=== PATIENT | male | born 1960 | race Caucasian/White ===

== ENCOUNTER 2023-01-11 11:07 | Outpatient (REF) | payer OTHER, SELFPAY | END 2023-01-11 11:08 | disposition home or self-care (01) | LOC: HO.BBR 11:07 | PROVIDERS: Visit Provider Internal Medicine | DX: D45 Polycythemia vera (principal) | CPT/HCPCS: 85018; 99195 ==

== ENCOUNTER 2023-02-13 11:54 | Outpatient (REF) | payer OTHER, SELFPAY | END 2023-02-13 11:55 | disposition home or self-care (01) | LOC: HO.BBR 11:54 | PROVIDERS: Visit Provider Internal Medicine | DX: D45 Polycythemia vera (principal) | CPT/HCPCS: 85018; 99195 ==

== ENCOUNTER 2023-03-22 12:55 | Outpatient (REF) | payer OTHER, SELFPAY | END 2023-03-22 12:56 | disposition home or self-care (01) | LOC: HO.BBR 12:55 | PROVIDERS: Visit Provider Internal Medicine | DX: D45 Polycythemia vera (principal) | CPT/HCPCS: 85014; 85018; 99195 ==

== ENCOUNTER 2023-04-25 14:59 | Outpatient (REF) | payer OTHER, SELFPAY | END 2023-04-25 15:00 | disposition home or self-care (01) | LOC: HO.BBR 14:59 | PROVIDERS: Visit Provider Internal Medicine | DX: D45 Polycythemia vera (principal) | CPT/HCPCS: 85018; 99195 ==

== ENCOUNTER 2023-06-26 15:10 | Outpatient (REF) | payer OTHER, SELFPAY | END 2023-06-26 15:11 | disposition home or self-care (01) | LOC: HO.BBR 15:10 | PROVIDERS: Visit Provider Internal Medicine | DX: D45 Polycythemia vera (principal) | CPT/HCPCS: 85018; 99195 ==

== ENCOUNTER 2023-08-28 15:06 | Outpatient (REF) | payer OTHER, SELFPAY | END 2023-08-28 15:07 | disposition home or self-care (01) | LOC: HO.BBR 15:06 | PROVIDERS: Visit Provider Internal Medicine | DX: D45 Polycythemia vera (principal) | CPT/HCPCS: 85014; 85018; 99195 ==

== ENCOUNTER 2023-10-31 15:36 | Outpatient (REF) | payer BC, SELFPAY | END 2023-10-31 15:37 | disposition home or self-care (01) | LOC: HO.BBR 15:36 | PROVIDERS: Visit Provider Internal Medicine | DX: D45 Polycythemia vera (principal) | CPT/HCPCS: 85018; 99195 ==

== ENCOUNTER 2024-01-02 15:02 | Outpatient (REF) | payer BC, SELFPAY | END 2024-01-02 15:03 | disposition home or self-care (01) | LOC: HO.BBR 15:02 | PROVIDERS: Visit Provider Internal Medicine | DX: D45 Polycythemia vera (principal) | CPT/HCPCS: 85018; 99195 ==

== ENCOUNTER 2024-03-04 15:01 | Outpatient (REF) | payer BC, SELFPAY | END 2024-03-04 15:02 | disposition home or self-care (01) | LOC: HO.BBR 15:01 | PROVIDERS: Visit Provider Internal Medicine | DX: D45 Polycythemia vera (principal) | CPT/HCPCS: 85014; 85018; 99195 ==

== ENCOUNTER 2024-05-06 14:55 | Outpatient (REF) | payer BC, SELFPAY | END 2024-05-06 14:56 | disposition home or self-care (01) | LOC: HO.BBR 14:55 | PROVIDERS: Visit Provider Internal Medicine | DX: D45 Polycythemia vera (principal) | CPT/HCPCS: 85018; 99195 ==

== ENCOUNTER 2024-07-08 15:08 | Outpatient (REF) | payer BC, SELFPAY | END 2024-07-08 15:09 | disposition home or self-care (01) | LOC: HO.BBR 15:08 | PROVIDERS: Visit Provider Internal Medicine | DX: D45 Polycythemia vera (principal) | CPT/HCPCS: 85014; 85018; 99195 ==

== ENCOUNTER 2024-09-08 15:15 | Outpatient (REF) | payer BC, SELFPAY | END 2024-09-08 15:16 | disposition home or self-care (01) | LOC: HO.BBR 15:15 | PROVIDERS: Visit Provider Internal Medicine | DX: D45 Polycythemia vera (principal) | CPT/HCPCS: 85018; 99195 ==

== ENCOUNTER 2024-10-31 15:07 | Outpatient (REF) | payer BC, SELFPAY | END 2024-10-31 15:08 | disposition home or self-care (01) | LOC: HO.BBR 15:07 | PROVIDERS: Visit Provider Internal Medicine | DX: D45 Polycythemia vera (principal) | CPT/HCPCS: 85018; 99195 ==

== ENCOUNTER 2025-01-13 15:03 | Outpatient (REF) | payer BC, SELFPAY ==
--- OUTSIDE RECORDS SUMMARY | 2025-01-13 18:53 | XMS_ITS | Continuity of Care Document ---
Author Organization [facility] Address [address] [place] [address]- Care Team Providers Care Ios Architect Name Role Phone Leon GENTILE, Michelle Cervantes Primary Care Physician Encounter [facility] Date(s): 12/09/24 - 01/08/25 [facility] [address] [place] [id number]- Attending Physician: David Jewell Admitting Physician: David Jewell Referring Physician: [id number] [id number] Encounter Type: Triage Allergies, Adverse Reactions, Alerts Substance Criticality Severity Reaction Reaction Severity Status Latex Active Immunizations Given and Recorded Vaccine Date Status Refusal Reason influenza virus vaccine, inactivated 11/16/23 Alpesh rded influenza virus vaccine, inactivated 09/06/22 Alpesh rded influenza virus vaccine, inactivated 07/17/21 Alpesh rded influenza virus vaccine, inactivated 07/27/20 Alpesh rded influenza virus vaccine, inactivated 10/21/19 Alpesh rded influenza virus vaccine, inactivated 07/17/18 Alpesh rded influenza virus vaccine, inactivated 11/03/12 Alpesh rded [id number] 12y+ bivalent booster vax 09/06/22 Recorded SARS-CoV-2 (COVID-19) mRNA BNT-162b2 vac 08/16/21 Recorded SARS-CoV-2 (COVID-19) mRNA BNT-162b2 vac 02/10/21 Recorded SARS-CoV-2 (COVID-19) mRNA BNT-162b2 vac 01/20/21 Recorded Medications apixaban 5 mg oral tablet 1 tablet = 5 mg, By Mouth, 2 times a day, # 180 tablet, 3 Refills, Maintenance, 10/24/24 12:57:00 PM EST, Tablet, [facility] #[id number], Partial fill upon patient request if the prescription is for a schedule II opioid drug., 178, cm, 07/29/24 15:49:00 EDT, Height, 95.4, kg, 03/17/24 18:30:00 EDT, Dry Weight Start Date: 10/24/24 Status: Ordered Quantity: 180.0 Unit: tablet Repeat number: 4 Crestor 20 mg oral tablet 1 tablet = 20 mg, By Mouth, Daily, # 90 tablet, 3 Refills, Maintenance, 09/19/24 1:49:00 PM EST, Tablet, [facility] #[id number], Partial fill upon patient request if the prescription is for a schedule II opioid drug., 178, cm, 07/29/24 15:49:00 EDT, Height, 95.4, kg, 03/17/24 18:30:00 EDT, DryWeight Start Date: 09/19/24 Status: Ordered Quantity: 90.0 Unit: tablet Repeat number: 4 hydrochlorothiazide 50 mg oral tablet 50 mg, 1, tablet, By Mouth, Daily, # 90 tablet, Refills 0, Tot. Refills 0, Maintenance, 12/12/24 10:22:00 AM EST, Route to Pharmacy Electronically, [facility] #[id number], Partial fill upon patient request if the prescription is for a schedule II opioid drug., 178, cm, 12/09/24 11:03:00 EST, Height, 95.4, kg, 03/17/24 18:30:00 EDT, Dry Weight Start Date: 12/12/24 Status: Ordered Quantity: 90.0 Unit: tablet Repeat number: 1 hydroxyurea 500 mg oral capsule = 5 mg/kg, By Mouth, Daily, 0 Refills, Maintenance, 07/15/24 1:05:00 PM EDT, Capsule, Partial fill upon patient request if the prescription is for a schedule II opioid drug. Start Date: 07/15/24 Status: Ordered Repeat number: 1 losartan 50 mg oral tablet 1 tablet = 50 mg, By Mouth, Daily, # 90 tablet, 1 Refills, Maintenance, 12/02/24 10:19:00 AM EST, Tablet, [facility] #[id number], Partial fill upon patient request if the prescription is for a schedule II opioid drug., 178, cm, 11/13/24 16:30:00 EST, Height, 95.4, kg, 03/17/24 18:30:00 EDT, DryWeight Start Date: 12/02/24 Status: Ordered Quantity: 90.0 Unit: tablet Repeat number: 2 Metoprolol Tartrate 100 mg oral tablet 1 tablet, By Mouth, 2 times a day, # 180 tablet, 1 Refills, Maintenance, 12/02/24 10:20:00 AM EST, [facility] #[id number], 178, cm, 11/13/24 16:30:00 EST, Height, 95.4, kg, 03/17/24 18:30:00 EDT,Dry Weight Start Date: 12/02/24 Status: Ordered Quantity: 180.0 Unit: tablet Repeat number: 2 tamsulosin 0.4 mg oral capsule 2, capsule, By Mouth, Daily, # 180 capsule, Refills 1, Tot. Refills 1, Maintenance, 12/02/24 10:19:00 AM EST, Route to Pharmacy Electronically, [facility] #[id number], 178, cm, 11/13/24 16:30:00 EST, Height, 95.4, kg, 03/17/24 18:30:00 EDT, Dry Weight Start Date: 12/02/24 Status: Ordered Quantity: 180.0 Unit: capsule Repeat number: 2 Problem List Condition Confirmation Course Effective Dates Status H ealth Status Informant Atrial fibrillation Confirmed Active Positive colorectal cancer screening using Cologuard test Confirmed Active Polycythemia Confirmed Active Former smoker Confirmed Active Hyperlipidemia Confirmed Active Hypertension Confirmed Active Leukocytosis Confirmed Active Obese class I Confirmed Active PAF (paroxysmal atrial fibrillation) Confirmed Active Screening for prostate cancer Confirmed Active Prediabetes Confirmed Active Pulmonary edema Confirmed Active Thrombocytosis Confirmed Active Umbilical hernia Confirmed Active Social History Social History Type Response Smoking Status Former smoker, quit more than 30 days ago; Other: quit approx 13 years ago; entered on: 11/03/22 Sex Sex Representation Male (finding) Patient Care team information Care Team Personnel Name: Chandler Alfaro RN Position: S RN Member Role: Primary Care Nurse Name: Michelle Quintero NP Position: S PCO Associate Professional Member Role: PCP Address: [address] [place] [address] [address] [place], [place] [address] Telecom: Name: Saurav Morales RN Position: S RN Member Role: Primary Care Nurse Care Team Related Persons Name: JESUS ECHAVARRIA Insurance Providers Guarantor name: AMADOR BRANDON [email or web address] Plan Information #: 1 Payer: [employer] Member Number: NA Policy Number: NA Group Number: NA
--- OUTSIDE RECORDS SUMMARY | 2025-01-13 18:53 | XMS_ITS | Clinical Summary ---
Author Organization [facility] Address [address] [place] [address] Care Team Providers Care Airport Utility Worker Name Role Phone Rosana Owen Primary Care Provider [phone] Allergies No known active allergies Medications Medication Sig Dispensed Refills Start Date End Date Status apixaban (ELIQUIS) 5 MG TABS tablet Take by mouth every 12 (twelve) hours. 0 Active metoprolol tartrate (LOPRESSOR) 100 MG tablet Take by mouth 2 (two) times a day. 0 Active hydroCHLOROthiazide (MICROZIDE) 12.5 MG capsule Take 1 capsule (12.5 mg total) by mouth daily. 0 Active losartan (COZAAR) tablet 50 mg Take 1 tablet (50 mg total) by mouth daily. 0 Active tamsulosin (FLOMAX) 0.4 MG CAPS Take 1 capsule (0.4 mg total) by mouth daily. 0 Active rosuvastatin (CRESTOR) tablet 20 mg Take 1 tablet (20 mg total) by mouth daily. 0 Active hydroxyurea (HYDREA) 500 MG OPENED capsule Take 1 capsule (500 mg total) by mouth daily. 30 capsule 9 05/12/2024 Active hydroxyurea (HYDREA) 500 MG capsule Take 1 capsule (500 mg total) by mouth daily 30 capsule 9 05/13/2024 Active Active Problems No known active problems Social History Tobacco Use Types Packs/Day Years Used Date Smoking Tobacco: Former Cigarettes Smokeless Tobacco: Never Tobacco Cessation:Counseling Given: Not Answered Alcohol Use Standard Drinks/Week Comments Yes 2 (1 standard drink = 0.6 oz pur e alcohol) Sex and Gender Information Value Date Recorded Sex Assigned at Not on file Gender Identity Not on file Sexual Orientation Not on file Job Start Date Occupation Industry Not on file Not on file Not on file Last Filed Vital Signs Vital Sign Reading Time Taken Comments Blood Pressure 128/82 05/12/2024 3:49 PM EDT Pulse 55 05/12/2024 3:49 PM EDT Temperature 35.9 ??C (96.7 ??F) 05/12/2024 3:49 PM ED T Respiratory Rate - - Oxygen Saturation 98% 05/12/2024 3:49 PM EDT Inhaled Oxygen Concentration - - Weight 97.5 kg (215 lb) 05/12/2024 3:49 PM EDT Height - - Body Mass Index - - Plan of Treatment Health Maintenance Due Date Last Done Comments Hepatitis C Screening 1960 Pneumococcal Vaccine (1 of 2 - PCV) 1966 Pneumococcal Vaccine (1 of 2 - PCV) 1966 Depression Screening 1972 Preventative Health Evaluation 1978 DTap / Tdap / Td (1 - Tdap) 1979 Shingrix-Zoster Vaccine (1 of 2) 1979 Colon Cancer Screening (Colonoscopy) 2005 COVID-19 Vaccine ( season) 2024 08/16/2021, 02/10/2021, 01/20/2021 Influenza Vaccine (#1) 2024 2, 07/17/2021, 07/27/2020, Additional history exists RSV Adult > 60+ Yrs or (1 - 1-dose 75+ series) 2035 Hepatitis B Vaccines Aged Out No long er eligible based on patient's age to complete this topic RSV Ped < 20 months Aged Out No longe r eligible based on patient's age to complete this topic Care Teams Airport Utility Worker Relationship Specialty Start Date End Date Rosana Owen [address] [facility] [place] [id number] PCP - General Family Medicine 05/09/23
--- OUTSIDE RECORDS SUMMARY | 2025-01-13 18:53 | XMS_ITS | Continuity of Care Document ---
Author Organization [facility] Address [address] [place] [address]- Care Team Providers Care Patient Access Coordinator Name Role Phone Leon PIANO REGULATOR INSPECTOR, Michelle Cervantes Primary Care Physician Encounter [facility] Date(s): 12/02/24 - 01/01/[address] [address]- Encounter Type: Triage Allergies, Adverse Reactions, Alerts [...] influenza virus vaccine, inactivated 11/03/12 Alpesh rded [id number] 12y+ bivalent booster vax 09/06/22 Recorded SARS-CoV-2 (COVID-19) mRNA BNT-162b2 vac 08/16/21 Recorded SARS-CoV-2 (COVID-19) mRNA BNT-162b2 vac 02/10/21 Recorded SARS-CoV-2 (COVID-19) mRNA BNT-162b2 vac 01/20/21 Recorded Medications apixaban 5 mg oral tablet 1 tablet = 5 mg, By Mouth, 2 times a day, # 180 tablet, 3 Refills, Maintenance, 10/24/24 12:57:00 PM EST, Tablet, [facility] #[id number], Partial fill upon patient request if the [...] Refills, Maintenance, 09/19/24 1:49:00 PM EST, Tablet, [facility] #[id number], Partial fill upon patient request if the [...] 10:22:00 AM EST, Route to Pharmacy Electronically, [facility] #[id number], Partial fill upon patient request if the [...] Refills, Maintenance, 12/02/24 10:19:00 AM EST, Tablet, [facility] #[id number], Partial fill upon patient request if the prescription is for a schedule II opioid drug., 178, cm, 11/13/24 16:30:00 EST, Height, 95.4, kg, 03/17/24 18:30:00 EDT, DryWeight Start Date: 12/02/24 Status: Ordered Quantity: 90.0 Unit: tablet Repeat number: 2 Metoprolol Tartrate 100 mg oral tablet 1 tablet, By Mouth, 2 times a day, # 180 tablet, 1 Refills, Maintenance, 12/02/24 10:20:00 AM EST, [facility] #[id number], 178, cm, 11/13/24 16:30:00 EST, Height, 95.4, kg, 03/17/24 18:30:00 EDT,Dry Weight Start Date: 12/02/24 Status: Ordered Quantity: 180.0 Unit: tablet Repeat number: 2 tamsulosin 0.4 mg oral capsule 2, capsule, By Mouth, Daily, # 180 capsule, Refills 1, Tot. Refills 1, Maintenance, 12/02/24 10:19:00 AM EST, Route to Pharmacy Electronically, [facility] #[id number], 178, cm, 11/13/24 16:30:00 EST, Height, 95.4, [...] Team Personnel Name: Chandler Alfaro RN Position: [facility] RN Member Role: Primary Care Nurse Name: Michlele Quintero NP Position: [facility] PCO Associate Professional Member Role: PCP Address: [address] [place] [address] [address] [place] [address]- Telecom: Name: Saurav Morales RN Position: [facility] RN Member Role: Primary Care Nurse Care Team Related Persons Name: JESUS ECHAVARRIA Insurance Providers Guarantor name: AMADOR MONDRAGON [facility] Plan Information #: 1 Payer: [employer] Member Number: NA Policy Number: NA Group Number: NA
--- OUTSIDE RECORDS SUMMARY | 2025-01-13 18:53 | XMS_ITS | Clinical Summary ---
Author Organization [facility] Address [address] [place] [address] Phone Care Team Providers Care Plumbing Engineering Draftsperson Name Role Phone Rosana Owen SCRIPT EDITOR Primary Care Provider [phone] Allergies No known active allergies Medications apixaban (ELIQUIS) 5 mg tablet Take by mouth every 12 (twelve) hours. Active hydroCHLOROthia zide (MICROZIDE) 12.5 mg capsule Take 1 capsule (12.5 mg total) by mouth daily. Active losartan (COZAAR) 50 mg tablet Take 1 tablet (50 mg total) by mouth daily. Active metoprolol tartrate (LOPRESSOR) 100 mg tablet Take by mouth 2 (two) times a day. Active rosuvastatin (CRESTOR) 20 mg tablet Take 1 tablet (20 mg total) by mouth daily. Active tamsulosin (FLOMAX) 0.4 mg 24 hr capsule Take 1 capsule (0.4 mg total) by mouth daily. Active hydroxyurea (HYDREA) 500 mg capsule Take 1 capsule (500 mg total) by mouth daily. 05/12/2024 Active Encounters Date Type Department Care Team Description 01/09/2025 Telephone [facility] [address] [place] [phone] Sisi Pinto MD 11/05/2024 2:30 PM EST Office Visit [facility] [address] [place] [phone] Sisi Pinto MD Polycythemia vera (CMS/HCC) (Primary Dx) from Last 3 Months Immunizations Name Administration Dates Next Due Pfizer SARS-CoV-2 COVID-19, mRNA, LNP-S, preservative free 08/16/2021 Social History Tobacco Use Types Packs/Day Years Used Date Smoking Tobacco: Former Smokeless Tobacco: Never Tobacco Cessation:Counseling Given: Not Answered Alcohol Use Standard Drinks/Week Comments Yes 2 (1 standard drink = 0.6 oz pur e alcohol) Sex and Gender Information Value Date Recorded Sex Assigned at Not on file Legal Sex Male 3:55 AM EST Gender Identity Not on file Sexual Orientation Not on file Obstetrics History Last Filed Vital Signs Vital Sign Reading Time Taken Comments Blood Pressure 150/86 11/05/2024 2:41 PM EST Pulse 60 11/05/2024 2:41 PM EST Temperature 36.2 ??C (97.1 ??F) 11/05/2024 2:41 PM ES T Respiratory Rate - - Oxygen Saturation 100% 11/05/2024 2:41 PM EST Inhaled Oxygen Concentration - - Weight 98.4 kg (217 lb) 11/05/2024 2:41 PM EST Height 177.8 cm (5' 10 ) 10/02/2022 4:16 PM EST Body Mass Index 31.14 10/02/2022 4:16 PM EST Plan of Treatment Upcoming Encounters Date Type Department Care Team (Late st Contact Info) Description 06/24/2025 3:45 PM EDT Office Visit [facility] [address] [place] [phone] Sisi Pinto MD [address] [place] [address] Health Maintenance Due Date Last Done Comments DTaP,Tdap,and Td Vaccines (1 - Tdap) 1979 Pneumococcal Vaccine: 50+ Years (1 of 2 - PCV) 1979 Pneumococcal Vaccine: Pediatrics (0 to 5 Years) and At-Risk Patients (6 to 64 Years) (1 of 2 - PCV) 1979 Zoster Vaccines (1 of 2) 1979 RSV Immunization Patients 60+ Years Old (1 - Risk 60-74 years 1-dose series) 2020 Cholesterol Screening (Lipid Panel) 09/30/2022 Colorectal Cancer Screening: Stool Based Tests (FOBT/FIT) 09/30/2022 Depression Screening 09/30/2022 HIV Screening 09/30/2022 Hepatitis C Screening 09/30/2022 Social Influencers of Health Screening 09/30/2022 COVID-19 Vaccine ( season) 2024 09/06/2022, 08/16/2021, 02/10/2021, Additional history exists Influenza Vaccine (#1) 2024 4, 09/06/2022, 07/17/2021, Additional history exists Hypertension/CHF/CAD Annual BMP Blood Test 11/03/2025 11/03/2024 HIB Vaccines Aged Out No longer eligi ble based on patient's age to complete this topic HPV Vaccines Aged Out No longer eligi ble based on patient's age to complete this topic Hepatitis A Vaccines Aged Out No long er eligible based on patient's age to complete this topic Hepatitis B Vaccines Aged Out No long er eligible based on patient's age to complete this topic IPV Vaccines Aged Out No longer eligi ble based on patient's age to complete this topic MMR Vaccines Aged Out No longer eligi ble based on patient's age to complete this topic Meningococcal ACWY Vaccine Aged Out N o longer eligible based on patient's age to complete this topic Meningococcal B Vacine Aged Out No lo nger eligible based on patient's age to complete this topic RSV Immunization Patients Under 20 months Aged Out No longer eligible based on patient's age to complete this topic Varicella Vaccines Aged Out No longer eligible based on patient's age to complete this topic Procedures Procedure Name Priority Date/Time Associated Diagnosis Comments CBC WITH AUTO DIFFERENTIAL Routine 11/03/2024 4:07 PM EST 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) ERYTHROPOIETIN Routine 11/03/2024 4:07 PM EST 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) CBC AND DIFFERENTIAL Routine 11/03/2024 4:07 PM EST 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) COMPREHENSIVE METABOLIC PANEL Routine 11/03/2024 4:07 PM EST 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) ..MISCELLANEOUS REFERENCE LAB TEST 11/03/2024 from Last 3 Months Results * CBC auto differential (11/03/2024 4:07 PM EST) [facility] WBC 6.2 4.8 - 10.8 K/mcL LAB HEMETOLOGY METHOD 11/03/2024 4:53 PM [facility] RBC 5.40 4.50 - 5.50 M/mcL LAB HEMETOLOGY METHOD 11/03/2024 4:53 PM [facility] Hemoglobin 17.0 13.5 - 17.5 g/dL LAB HEMETOLOGY METHOD 11/03/2024 4:53 PM [facility] Hematocrit 51.1 42.0 - 54.0 % LAB HEMETOLOGY METHOD 11/03/2024 4:53 PM [facility] MCV 94.1 79.0 - 98.0 FL LAB HEMETOLOGY METHOD 11/03/2024 4:53 PM [facility] MCH 31.3 27.0 - 32.0 pcg LAB HEMETOLOGY METHOD 11/03/2024 4:53 PM [facility] MCHC 33.3 32.0 - 37.0 g/dL LAB HEMETOLOGY METHOD 11/03/2024 4:53 PM [facility] RDW 14.6 11.0 - 15.0 % LAB HEMETOLOGY METHOD 11/03/2024 4:53 PM [facility] Platelets 339 130 - 400 K/mcL LAB HEMETOLOGY METHOD 11/03/2024 4:53 PM [facility] MPV 10.3 7.0 - 11.0 FL LAB HEMETOLOGY METHOD 11/03/2024 4:53 PM [facility] NRBC 0.0 <1.0 % LAB HEMETOLOGY METHOD 11/03/2024 4:53 PM [facility] NRBC Absolute 0.00 <0.10 K/mcL LAB HEMETOLOGY METHOD 11/03/2024 4:53 PM [facility] Neutrophils Relative 57.3 % LAB HEMETOLOGY METHOD 11/03/2024 4:53 PM [facility] Lymphocytes Relative 30.1 % LAB HEMETOLOGY METHOD 11/03/2024 4:53 PM [facility] Monocytes Relative 9.6 % LAB HEMETOLOGY METHOD 11/03/2024 4:53 PM [facility] Eosinophils Relative 1.4 % LAB HEMETOLOGY METHOD 11/03/2024 4:53 PM [facility] Basophils Relative 1.3 % LAB HEMETOLOGY METHOD 11/03/2024 4:53 PM [facility] Immature Granulocytes Relative 0.3 % LAB HEMETOLOGY METHOD 11/03/2024 4:53 PM [facility] Neutrophils Absolute 3.57 1.50 - 7.00 K/mcL LAB HEMETOLOGY METHOD 11/03/2024 4:53 PM [facility] Lymphocytes Absolute 1.88 1.00 - 5.00 K/mcL LAB HEMETOLOGY METHOD 11/03/2024 4:53 PM [facility] Monocytes Absolute 0.60 0.20 - 1.00 K/mcL LAB HEMETOLOGY METHOD 11/03/2024 4:53 PM [facility] Eosinophils Absolute 0.09 0.00 - 0.50 K/mcL LAB HEMETOLOGY METHOD 11/03/2024 4:53 PM [facility] Basophils Absolute 0.08 0.00 - 0.20 K/mcL LAB HEMETOLOGY METHOD 11/03/2024 4:53 PM [facility] Immature Granulocytes Absolute 0.02 0.00 - 0.03 K/mcL LAB HEMETOLOGY METHOD 11/03/2024 4:53 PM [facility] Blood Venous blood specimen / Unknown Venipuncture / Unknown 11/03/2024 4:07 PM EST 11/03/2024 4:38 PM EST Sisi Pinto MD LAB BLOOD ORDERABLES Final R esult [facility] [address] [place] [address], [place] [phone] * Erythropoietin (11/03/2024 4:07 PM EST) Pathologist [facility] Erythropoietin 5.1 2.6 - 18.5 mIU/mL 11/06/2024 5:16 PM EST [facility] Comment: Test performed at [facility], [address], [place], [place] ??[address] ? [phone] Aleta White MD, PhD - Inspector Subassembly Blood Venous blood specimen / Unknown Venipuncture / Unknown 11/03/2024 4:07 PM EST 11/03/2024 4:38 PM EST Sisi Pinto MD LAB BLOOD ORDERABLES Final R esult [facility] [address] [place] [address] * (ABNORMAL) Comprehensive metabolic panel (11/03/2024 4:07 PM EST) Pathologist [facility] Sodium 137 133 - 145 mmol/L LAB CHEMISTRY METHOD 11/03/2024 6:54 PM EST [facility] Potassium 4.2 3.5 - 5.5 mmol/L LAB CHEMISTRY METHOD 11/03/2024 6:54 PM EST [facility] Chloride 101 96 - 110 mmol/L LAB CHEMISTRY METHOD 11/03/2024 6:54 PM EST [facility] CO2 31 21 - 32 mmol/L LAB CHEMISTRY METHOD 11/03/2024 6:54 PM [facility] Anion Gap 5 3 - 11 LAB CHEMISTRY METHOD 11/03/2024 6:54 PM EST [facility] Glucose 86 70 - 100 mg/dL LAB CHEMISTRY METHOD 11/03/2024 6:54 PM [facility] BUN 21 5 - 25 mg/dL LAB CHEMISTRY METHOD 11/03/2024 6:54 PM [facility] Creatinine 1.00 0.70 - 1.30 mg/dL LAB CHEMISTRY METHOD 11/03/2024 6:54 PM [facility] eGFR 84 >=60 mL/min/1. 73m2 LAB CHEMISTRY METHOD 11/03/2024 6:54 PM [facility] Comment:Calculation based on the??Chronic Kidney Disease Epidemiology Collaboration (CKD-EPI) equation refit??without adjustment for race. BUN/Creatinine Ratio 21.0 LAB CHEMISTRY METHOD 11/03/2024 6:54 PM [facility] Calcium 9.8 8.5 - 10.5 mg/dL LAB CHEMISTRY METHOD 11/03/2024 6:54 PM [facility] AST (SGOT) 27 10 - 42 unit/L LAB CHEMISTRY METHOD 11/03/2024 6:54 PM [facility] ALT (SGPT) 45 10 - 60 unit/L LAB CHEMISTRY METHOD 11/03/2024 6:54 PM [facility] Alkaline Phosphatase 55 42 - 121 unit/L LAB CHEMISTRY METHOD 11/03/2024 6:54 PM [facility] Total Protein 6.7 6.0 - 8.0 g/dL LAB CHEMISTRY METHOD 11/03/2024 6:54 PM [facility] Albumin 4.2 3.2 - 5.0 g/dL LAB CHEMISTRY METHOD 11/03/2024 6:54 PM [facility] Total Bilirubin 1.7(H) 0.0 - 1.4 mg/dL LAB CHEMISTRY METHOD 11/03/2024 6:54 PM [facility] Blood Venous blood specimen / Unknown Venipuncture / Unknown 11/03/2024 4:07 PM EST 11/03/2024 4:38 PM EST Sisi Pinto MD LAB BLOOD ORDERABLES Final R esult [facility] [place] [facility] [address] [place] [address], [place] [phone] * Miscellaneous reference lab test (11/03/2024) Provider Onbase LAB BLOOD ORDERABLES Final Re sult from Last 3 Months Insurance [facility] Care Teams Plumbing Engineering Draftsperson Relationship Specialty Start Date End Date Rosana Owen, SCRIPT EDITOR [facility] [id number] [place] [address] PCP - General 05/09/23
--- OUTSIDE RECORDS SUMMARY | 2025-01-13 18:53 | XMS_ITS | Encounter Summary ---
Author Organization [facility] Address [address] [place] [address] Care Team Providers Care Nca Certified Concierge Name Role Phone Rosana Owen NP Primary Care Provider [phone]- [phone] Encounter Details Date Type Department Care Team (Late st Contact Info) Description 01/09/2025 Telephone [facility] [address] [address] Sisi Pinto MD [address] [place] [address] Social History Tobacco Use Types Packs/Day Years Used Date Smoking Tobacco: Former Smokeless Tobacco: Never Alcohol Use Standard Drinks/Week Comments Yes 2 (1 standard drink = 0.6 oz pur e alcohol) Sex and Gender Information Value Date Recorded Sex Assigned at Not on file Legal Sex Male 3:55 AM EST Gender Identity Not on file Sexual Orientation Not on file documented as of this encounter Progress Notes * Johnathon Briscoe MA - 01/09/2025 10:26 AM EDT New phlebotomy order has been faxed over. * Sruthi Mcdonald - 01/09/2025 9:15 AM EDT Pt needs new phlebotomy order please send to [facility] thank you documented in this encounter Plan of Treatment Upcoming Encounters Date Type Department Care Team (Late st Contact Info) Description 06/24/2025 3:45 PM EDT Office Visit [facility] [address] [place] [address] Sisi Pinto MD [address] [place] [address] documented as of this encounter Visit Diagnoses Not on filedocumented in this encounter Care Teams Nca Certified Concierge Relationship Specialty Start Date End Date Rosana Owen, SUPERVISOR PUBLIC MESSAGE SERVICE [facility] [address] [place] [address] PCP - General 05/09/23 documented as of this encounter
--- OUTSIDE RECORDS SUMMARY | 2025-01-13 18:53 | XMS_ITS | Continuity of Care Document ---
Author Organization [facility] Address [address] [place] [address]- Care Team Providers Care Patent Chemist Name Role Phone Leon RAILROAD WHEELS AND AXLES INSPECTOR, Michelle Cervantes Primary Care Physician Encounter [facility] Date(s): 11/27/24 - 12/27/24 [facility] [address] [place] [address]- Encounter Type: Triage Allergies, Adverse Reactions, Alerts [...] influenza virus vaccine, inactivated 11/03/12 Alpesh rded [id number] 12y+ bivalent booster vax 09/06/22 Recorded SARS-CoV-2 (COVID-19) mRNA BNT-162b2 vac 08/16/21 Recorded SARS-CoV-2 (COVID-19) mRNA BNT-162b2 vac 02/10/21 Recorded SARS-CoV-2 (COVID-19) mRNA BNT-162b2 vac 01/20/21 Recorded Medications apixaban 5 mg oral tablet 1 tablet = 5 mg, By Mouth, 2 times a day, # 180 tablet, 3 Refills, Maintenance, 10/24/24 12:57:00 PM EST, Tablet, [id number] #[id number], Partial fill upon patient request if the [...] Refills, Maintenance, 09/19/24 1:49:00 PM EST, Tablet, [facility] #[id number], Partial fill upon patient request if the [...] 10:22:00 AM EST, Route to Pharmacy Electronically, [facility] #[id number], Partial fill upon patient request if the [...] Refills, Maintenance, 12/02/24 10:19:00 AM EST, Tablet, [facility] #[id number], Partial fill upon patient request if the prescription is for a schedule II opioid drug., 178, cm, 11/13/24 16:30:00 EST, Height, 95.4, kg, 03/17/24 18:30:00 EDT, DryWeight Start Date: 12/02/24 Status: Ordered Quantity: 90.0 Unit: tablet Repeat number: 2 Metoprolol Tartrate 100 mg oral tablet 1 tablet, By Mouth, 2 times a day, # 180 tablet, 1 Refills, Maintenance, 12/02/24 10:20:00 AM EST, [facility] #[id number], 178, cm, 11/13/24 16:30:00 EST, Height, 95.4, kg, 03/17/24 18:30:00 EDT,Dry Weight Start Date: 12/02/24 Status: Ordered Quantity: 180.0 Unit: tablet Repeat number: 2 tamsulosin 0.4 mg oral capsule 2, capsule, By Mouth, Daily, # 180 capsule, Refills 1, Tot. Refills 1, Maintenance, 12/02/24 10:19:00 AM EST, Route to Pharmacy Electronically, [facility] #[id number], 178, cm, 11/13/24 16:30:00 EST, Height, 95.4, [...] Team Personnel Name: Chandler Alfaro RN Position: [facility] RN Member Role: Primary Care Nurse Name: Michelle Quintero NP Position: [facility] PCO Associate Professional Member Role: PCP Address: [address] [place] [address] [address] [place] [address]- Telecom: Name: Saurav Morales RN Position: [facility] RN Member Role: Primary Care Nurse Care Team Related Persons Name: STILS, JESUS Insurance Providers Guarantor name: AMADOR MONDRAGON [facility] Plan Information #: 1 Payer: [employer] Member Number: NA Policy Number: NA Group Number: NA
== END 2025-01-13 15:04 | disposition home or self-care (01) ==
LOC: HO.BBR 15:03
PROVIDERS: Visit Provider Internal Medicine
DX: D45 Polycythemia vera (principal)
CPT/HCPCS: 85018; 99195

== ENCOUNTER 2025-03-18 15:34 | Outpatient (REF) | payer BC, SELFPAY ==
--- OUTSIDE RECORDS SUMMARY | 2025-03-18 16:06 | XMS_ITS | Clinical Summary ---
Author Organization [facility] Address [address] [place] [address] Care Team Providers Care Lithographic Plate Maker Apprentice Name Role Phone Rosana Owen Primary Care Provider +1 -[phone] Allergies No known active allergies Medications Medication [...] age to complete this topic Care Teams Lithographic Plate Maker Apprentice Relationship Specialty Start Date End Date Rosana Owen [address] [facility] [place] [address] PCP - General Family Medicine 05/09/23
== END 2025-03-18 15:35 | disposition home or self-care (01) ==
LOC: HO.BBR 15:34
PROVIDERS: Visit Provider Internal Medicine
DX: D45 Polycythemia vera (principal)
CPT/HCPCS: 85014; 85018; 99195

== ENCOUNTER 2025-05-18 15:35 | Outpatient (REF) | payer BC, SELFPAY ==
--- OUTSIDE RECORDS SUMMARY | 2025-05-13 23:59 | XMS_ITS | Continuity of Care Document ---
Author Organization [facility] Address [address] [place] [address]- Care Team Providers Care Flanging Roll Operator Name Role Phone Leon ADVERTISING COORDINATOR, Michelle Cervantes Primary Care Physician Encounter [facility] Date(s): 04/13/25 - 05/13/[address] [address] Encounter Type: Triage Allergies, Adverse Reactions, Alerts [...] influenza virus vaccine, inactivated 11/03/12 Alpesh rded [id number] 12y+ bivalent booster vax 09/06/22 Recorded SARS-CoV-2 (COVID-19) mRNA BNT-162b2 vac 08/16/21 Recorded SARS-CoV-2 (COVID-19) mRNA BNT-162b2 vac 02/10/21 Recorded SARS-CoV-2 (COVID-19) mRNA BNT-162b2 vac 01/20/21 Recorded Medications apixaban 5 mg oral tablet 1 tablet = 5 mg, By Mouth, 2 times a day, # 180 tablet, 3 Refills, Maintenance, 10/24/24 12:57:00 PM EST, Tablet, [facility] #[id number], Partial fill upon patient request if the [...] Refills, Maintenance, 09/19/24 1:49:00 PM EST, Tablet, [facility] #[id number], Partial fill upon patient request if the prescription is for a schedule II opioid drug., 178, cm, 07/29/24 15:49:00 EDT, Height, 95.4, kg, 03/17/24 18:30:00 EDT, DryWeight Start Date: 09/19/24 Status: Ordered Quantity: 90.0 Unit: tablet Repeat number: 4 hydrochlorothiazide 50 mg oral tablet 50 mg, 1, tablet, By Mouth, Daily, # 90 tablet, Refills 1, Tot. Refills 1, Maintenance, 04/13/25 1:56:00 PM EDT, Route to Pharmacy Electronically, [facility] #[id number], Partial fill upon patient request if the prescription is for a schedule II opioid drug., 178, cm, 12/09/24 11:03:00 EST, Height, 95.4, kg, 03/17/24 18:30:00 EDT, Dry Weight Start Date: 04/13/25 Status: Ordered Quantity: 90.0 Unit: tablet Repeat number: 2 hydroxyurea 500 mg oral capsule = 5 [...] Refills, Maintenance, 12/02/24 10:19:00 AM EST, Tablet, [facility] #[id number], Partial fill upon patient request if the prescription is for a schedule II opioid drug., 178, cm, 11/13/24 16:30:00 EST, Height, 95.4, kg, 03/17/24 18:30:00 EDT, DryWeight Start Date: 12/02/24 Status: Ordered Quantity: 90.0 Unit: tablet Repeat number: 2 Metoprolol Tartrate 100 mg oral tablet 1 tablet, By Mouth, 2 times a day, # 180 tablet, 1 Refills, Maintenance, 03/12/25 8:33:00 AM EDT, [facility] #[id number], 178, cm, 12/09/24 11:03:00 EST, Height, 95.4, kg, 03/17/24 18:30:00 EDT, Dry Weight Start Date: 03/12/25 Status: Ordered Quantity: 180.0 Unit: tablet Repeat number: 2 tamsulosin 0.4 mg oral capsule 2, capsule, By Mouth, Daily, # 180 capsule, Refills 1, Tot. Refills 1, Maintenance, 02/02/25 3:08:00PM EDT, Route to Pharmacy Electronically, [facility] #[id number], 178, cm, 12/09/24 11:03:00 EST, Height, 95.4, kg, 03/17/24 18:30:00 EDT, Dry Weight Start Date: 02/02/25 Status: Ordered Quantity: 180.0 Unit: capsule Repeat [...] Care team information Care Team Personnel Name: Michelle Quintero NP Position: [facility] PCO Associate Professional Member Role: PCP Address: [address] [place] [address] [address] [place], [place] [address] Telecom: Name: Saurav Morales RN Position: S RN Member Role: Primary Care Nurse Care Team Related Persons Name: JESUS ECHAVARRIA Insurance Providers Guarantor name: AMADOR MONDRAGON [facility] Plan Information #: 1 Payer: [facility] Payer Identifier: NA Member Number: [id number] Group Number: [id number] Subscriber Identifier: [id number] Relationship to Subscriber: self Coverage Type: NA Coverage Verification Date: Telecom: [employer] Address:
--- OUTSIDE RECORDS SUMMARY | 2025-05-18 15:53 | XMS_ITS | Clinical Summary ---
Author Organization [facility] Address [address] [place] [address] Care Team Providers Care Head Of Conservation Name Role Phone Rosana Owen Primary Care Provider +1 -[phone] Allergies No known active allergies Medications Medication [...] 55 05/12/2024 3:49 PM EDT Temperature 35.9 C (96.7 F) 05/12/2024 3:49 PM EDT Respiratory Rate - - Oxygen Saturation 98% 05/12/2024 3:49 PM EDT Inhaled Oxygen Concentration - - Weight 97.5 kg (215 lb) 05/12/2024 3:49 PM EDT Height - - Body Mass Index - - Plan of Treatment Health Maintenance Due Date Last Done Comments Hepatitis C Screening 1960 Depression Screening 1972 Preventative Health Evaluation 1978 DTap / Tdap / Td (1 - Tdap) 1979 Colon Cancer Screening (Colonoscopy) 2005 Shingrix-Zoster Vaccine (1 of 2) 2010 COVID-19 Vaccine ( - season) 2024 08/16/2021, 02/10/2021, 01/20/2021 Fall Risk Assessment 2025 Pneumococcal Vaccine (1 of 1 - PCV) 2025 Influenza Vaccine (#1) 2025 2, 07/17/2021, 07/27/2020, Additional history exists RSV Adult > 60+ Yrs or (1 - 1-dose 75+ series) 2035 Hepatitis B Vaccines Aged Out No long er eligible based on patient's age to complete this topic Pneumococcal Vaccine Aged Out No long er eligible based on patient's age to complete this topic RSV Ped < 20 months Aged Out No longe r eligible based on patient's age to complete this topic Care Teams Head Of Conservation Relationship Specialty Start Date End Date Rosana Owen [address] [place] [address] PCP - General Family Medicine 05/09/23
--- OUTSIDE RECORDS SUMMARY | 2025-05-18 15:53 | XMS_ITS | Clinical Summary ---
Author Organization [facility] Address [address] [place] [address] Phone Care Team Providers Care University Services Program Associate Name Role Phone Rosana Owen OFFICE SERVICES COORDINATOR Primary Care Provider +1- [phone] Allergies No known active allergies Medications apixaban [...] 1 capsule (500 mg total) by mouth 1 (one) time each day Take at the same time each day. 30 capsule 11 03/11/2025 Active Immunizations Name Administration Dates Next Due Pfizer [...] 60 11/05/2024 2:41 PM EST Temperature 36.2 C (97.1 F) 11/05/2024 2:41 PM EST Respiratory Rate - - Oxygen Saturation 100% [...] Description 06/24/2025 3:45 PM EDT Office Visit [facility] Hemat[facility] Oncology [address] [place] [address] Sisi Pinto MD [address] [place] [address] Health Maintenance Due Date Last Done Comments DTaP,Tdap,and Td Vaccines (1 - Tdap) 1979 Zoster Vaccines (1 of 2) 1979 Pneumococcal Vaccine: 50+ Years (1 of 1 - PCV) 2010 Abdominal Aortic Aneurysm (AAA) Screen 09/30/2022 Cholesterol Screening (Lipid Panel) 09/30/2022 Colorectal Cancer Screening: Stool Based Tests (FOBT/FIT) 09/30/2022 Hepatitis C Screening 09/30/2022 Social Influencers of Health Screening 09/30/2022 COVID-19 Vaccine ( season) 2024 09/06/2022, 08/16/2021, 02/10/2021, Additional history exists Depression Screening 10/22/2024 Falls Risk Assessment 2025 Influenza Vaccine (#1) 2025 , 09/06/2022, 07/17/2021, Additional history exists Hypertension/CHF/CAD Annual BMP Blood Test 11/03/2025 11/03/2024 RSV Immunization Adult Patients (1 - 1-dose 75+ series) 2035 HIB Vaccines Aged Out No longer eligi [...] age to complete this topic Meningococcal B Vaccine Aged Out No l onger eligible based on patient's age to complete this topic RSV Immunization Patients Under 20 months Aged Out No longer eligible based on patient's age to complete this topic Varicella Vaccines Aged Out No longer eligible based on patient's age to complete this topic Procedures Procedure Name Priority Date/Time Associated Diagnosis Comments COMPREHENSIVE METABOLIC PANEL Routine 11/03/2024 4:07 PM EST Chronic erythremia in remission ([facility] V24, [facility] V28) from Last 3 Months or Most Recently Relevant to Health Maintenance Results * (ABNORMAL) Comprehensive metabolic panel (11/03/2024 4:07 PM EST) Sodium 137 133 - 145 mmol/L LAB CHEMISTRY METHOD 11/03/2024 6:54 PM [facility] Potassium 4.2 3.5 - 5.5 mmol/L LAB CHEMISTRY METHOD 11/03/2024 6:54 PM [facility] Chloride 101 96 - 110 mmol/L LAB CHEMISTRY METHOD 11/03/2024 6:54 PM [facility] CO2 31 21 - 32 mmol/L LAB CHEMISTRY METHOD 11/03/2024 6:54 PM [facility] Anion Gap 5 3 - 11 LAB CHEMISTRY METHOD 11/03/2024 6:54 PM [facility] Glucose 86 70 - 100 mg/dL LAB CHEMISTRY METHOD 11/03/2024 6:54 PM [facility] BUN 21 5 - 25 mg/dL LAB CHEMISTRY METHOD 11/03/2024 6:54 PM [facility] Creatinine 1.00 0.70 - 1.30 mg/dL LAB CHEMISTRY METHOD 11/03/2024 6:54 PM [facility] eGFR 84 >=60 mL/min/1. 73m2 LAB CHEMISTRY METHOD 11/03/2024 6:54 PM [facility] Comment:Calculation based on the Chronic Kidney Disease Epidemiology Collaboration (CKD-EPI) equation refit without adjustment for race. BUN/Creatinine Ratio 21.0 LAB CHEMISTRY METHOD 11/03/2024 6:54 PM [facility] Calcium 9.8 8.5 - 10.5 mg/dL LAB CHEMISTRY METHOD 11/03/2024 6:54 PM [facility] AST (SGOT) 27 10 - 42 unit/L LAB CHEMISTRY METHOD 11/03/2024 6:54 PM [facility] ALT (SGPT) 45 10 - 60 unit/L LAB CHEMISTRY METHOD 11/03/2024 6:54 PM [facility] Alkaline Phosphatase 55 42 - 121 unit/L LAB CHEMISTRY METHOD 11/03/2024 6:54 PM [facility] Total Protein 6.7 6.0 - 8.0 g/dL LAB CHEMISTRY METHOD 11/03/2024 6:54 PM [facility] Albumin 4.2 3.2 - 5.0 g/dL LAB CHEMISTRY METHOD 11/03/2024 6:54 PM [facility] Total Bilirubin 1.7(H) 0.0 - 1.4 mg/dL LAB CHEMISTRY METHOD 11/03/2024 6:54 PM [facility] Blood Venous blood specimen / Unknown Venipuncture / Unknown 11/03/2024 4:07 PM EST 11/03/2024 4:38 PM EST Sisi Pinto MD LAB BLOOD ORDERABLES Final R esult [facility] [address] [place] [address], from Last 3 Months or Most Recently Relevant to Health Maintenance Insurance [facility] Care Teams University Services Program Associate Relationship Specialty Start Date End Date Rosana Owen, OFFICE SERVICES COORDINATOR [place] [place] [address] PCP - General 05/09/23
== END 2025-05-18 15:36 | disposition home or self-care (01) ==
LOC: HO.BBR 15:35
PROVIDERS: Visit Provider Internal Medicine
DX: D45 Polycythemia vera (principal)
CPT/HCPCS: 85014; 85018; 99195

== ENCOUNTER 2025-08-19 15:41 | Outpatient (REF) | payer BC, SELFPAY ==
--- OUTSIDE RECORDS SUMMARY | 2025-08-19 19:54 | XMS_ITS | Clinical Summary ---
Author Organization [facility] Address [address] [place] [address] Care Team Providers Care Dance Costume Designer Name Role Phone Rosana Owen Primary Care Provider +1 -[phone] Allergies No known active allergies Medications Medication [...] 2005 Shingrix-Zoster Vaccine (1 of 2) 2010 Fall Risk Assessment 2025 Pneumococcal Vaccine (1 of 1 - PCV) 2025 COVID-19 Vaccine ( - 2024- season) 2025 08/16/2021, 02/10/2021, 01/20/2021 Influenza Vaccine (#1) 2025 2, 07/17/2021, 07/27/2020, [...] age to complete this topic Care Teams Dance Costume Designer Relationship Specialty Start Date End Date Rosana Owen [address] [place] [address] PCP - General Family Medicine 05/09/23
--- OUTSIDE RECORDS SUMMARY | 2025-08-19 19:54 | XMS_ITS | Clinical Summary ---
Author Organization [facility] Address [address] [place] [address] Phone Care Team Providers Care Edger Runner Name Role Phone Rosana Owen WET MACHINE CUTTER Primary Care Provider [phone] Allergies No known active allergies Medications apixaban [...] daily. Active hydroxyurea (HYDREA) 500 mg capsule TAKE 1 CAPSULE(500 MG) BY MOUTH DAILY 30 capsule 11 06/05/2025 Active Encounters Date Type Department Care Team Description 06/24/2025 3:45 PM EDT Office Visit [facility] Hematology Oncology [address] [place] [phone] Sisi Pinto MD Myeloproliferative neoplasm (CMS/HCC V24, CMS/HCC V28) (Primary Dx); Polycythemia 06/19/2025 Telephone [facility] Hematology Oncology [address] [place] [phone] Sisi Pinto MD from Last 3 Months Immunizations Immunization Administration Dates Next Due Pfizer SARS-CoV-2 COVID-19, [...] Sign Reading Time Taken Comments Blood Pressure 124/87 06/24/2025 3:44 PM EDT Pulse 59 06/24/2025 3:44 PM EDT Temperature 36 C (96.8 F) 06/24/2025 3:44 PM EDT Respiratory Rate - - Oxygen Saturation 97% 06/24/2025 3:44 PM EDT Inhaled Oxygen Concentration - - Weight 95.7 kg (211 lb) 06/24/2025 3:44 PM EDT Height 177.8 cm (5' 10 ) 10/02/2022 4:16 PM EST Body Mass Index 30.28 10/02/2022 4:16 PM EST Plan of Treatment Upcoming Encounters Date Type Department Care Team (Late st Contact Info) Description 12/22/2025 3:30 PM EST Office Visit [facility] Hematology Oncology [address] [place] [phone] Sisi Pinto MD [address] [place] [address] Health Maintenance Due Date Last Done Comments DTaP,Tdap,and Td Vaccines (1 - Tdap) 1979 Zoster Vaccines (1 of 2) 1979 Pneumococcal Vaccine: 50+ Years (1 of 1 - PCV) 2010 RSV Immunization Adult Patients (1 - Risk 50-74 years 1-dose series) 2010 Abdominal Aortic Aneurysm (AAA) Screen 09/30/2022 Cholesterol Screening (Lipid Panel) 09/30/2022 Colorectal Cancer Screening: Stool Based Tests (FOBT/FIT) 09/30/2022 Hepatitis C Screening 09/30/2022 Social Influencers of Health Screening 09/30/2022 Depression Screening 10/22/2024 Falls Risk Assessment 2025 COVID-19 Vaccine ( season) 2025 09/06/2022, 08/16/2021, 02/10/2021, Additional history exists Hypertension/CHF/CAD Annual BMP Blood Test 11/03/2025 11/03/2024 Influenza Vaccine Completed 06/23/2025, , 09/06/2022, Additional history exists HIB Vaccines Aged Out No longer eligi [...] Diagnosis Comments CBC WITH AUTO DIFFERENTIAL Routine 06/19/2025 3:56 PM EDT Polycythemia vera (CMS/HCC V24, CMS/HCC V28) LACTATE DEHYDROGENASE Routine 06/19/2025 3:56 PM EDT Polycythemia vera (CMS/HCC V24, CMS/HCC V28) CBC AND DIFFERENTIAL Routine 06/19/2025 3:56 PM EDT Polycythemia vera (CMS/HCC V24, CMS/HCC V28) COMPREHENSIVE METABOLIC PANEL Routine 11/03/2024 4:07 PM EST 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 V24, CMS/HCC V28) from Last 3 Months or Most Recently Relevant to Health Maintenance Results * CBC auto differential (06/19/2025 3:56 PM EDT) [facility] WBC 6.6 4.8 - 10.8 K/mcL LAB HEMETOLOGY METHOD 06/19/2025 4:43 PM EDT [facility] RBC 5.20 4.50 - 5.50 M/mcL LAB HEMETOLOGY METHOD 06/19/2025 4:43 PM EDT [facility] Hemoglobin 16.2 13.5 - 17.5 g/dL LAB HEMETOLOGY METHOD 06/19/2025 4:43 PM EDT [facility] Hematocrit 48.1 42.0 - 54.0 % LAB [facility] M[facility] 93.2 79.0 - 98.0 FL LAB [facility]OLOGY [facility] MCH 31.4 27.0 - 32.0 pcg LAB HEMETOLOGY METHOD 06/19/2025 4:43 PM EDT [facility] MCHC 33.7 32.0 - 37.0 g/dL LAB HEMETOLOGY METHOD 06/19/2025 4:43 PM EDT [facility] RDW 13.7 11.0 - 15.0 % LAB HEMETOLOGY METHOD 06/19/2025 4:43 PM EDT [facility] Platelets 313 130 - 400 K/mcL LAB HEMETOLOGY METHOD 06/19/2025 4:43 PM EDT [facility] MPV 10.1 7.0 - 11.0 FL LAB HEMETOLOGY METHOD 06/19/2025 4:43 PM EDT [facility] NRBC 0.0 <1.0 % LAB HEMETOLOGY METHOD 06/19/2025 4:43 PM EDT [facility] NRBC Absolute 0.00 <0.10 K/mcL LAB HEMETOLOGY METHOD 06/19/2025 4:43 PM [facility] Neutrophils Relative 62.4 % LAB HEMETOLOGY METHOD 06/19/2025 4:43 PM [facility] Lymphocytes Relative 24.8 % LAB HEMETOLOGY METHOD 06/19/2025 4:43 PM [facility] Monocytes Relative 8.7 % LAB HEMETOLOGY METHOD 06/19/2025 4:43 PM [facility] Eosinophils Relative 2.4 % LAB HEMETOLOGY METHOD 06/19/2025 4:43 PM [facility] Basophils Relative 1.2 % LAB HEMETOLOGY METHOD 06/19/2025 4:43 PM [facility] Immature Granulocytes Relative 0.5 % LAB HEMETOLOGY METHOD 06/19/2025 4:43 PM [facility] Neutrophils Absolute 4.10 1.50 - 7.00 K/mcL LAB HEMETOLOGY METHOD 06/19/2025 4:43 PM [facility] Lymphocytes Absolute 1.63 1.00 - 5.00 K/mcL LAB HEMETOLOGY METHOD 06/19/2025 4:43 PM [facility] Monocytes Absolute 0.57 0.20 - 1.00 K/mcL LAB HEMETOLOGY METHOD 06/19/2025 4:43 PM [facility] Eosinophils Absolute 0.16 0.00 - 0.50 K/mcL LAB HEMETOLOGY METHOD 06/19/2025 4:43 PM [facility] Basophils Absolute 0.08 0.00 - 0.20 K/mcL LAB HEMETOLOGY METHOD 06/19/2025 4:43 PM [facility] Immature Granulocytes Absolute 0.03 0.00 - 0.03 K/mcL LAB HEMETOLOGY METHOD 06/19/2025 4:43 PM [facility] Blood Venous blood specimen / Unknown Venipuncture / Unknown 06/19/2025 3:56 PM EDT 06/19/2025 4:31 PM EDT Sisi Pinto MD LAB BLOOD ORDERABLES Final R esult [facility] [address] [place] [address], [place] [phone] * Lactate dehydrogenase (06/19/2025 3:56 PM EDT) Pathologist [facility] LDH 205 120 - 246 unit/L LAB CHEMISTRY METHOD 06/19/2025 5:02 PM EDT [facility] Blood Venous blood specimen / Unknown Venipuncture / Unknown 06/19/2025 3:56 PM EDT 06/19/2025 4:30 PM EDT Sisi Pinot MD LAB BLOOD ORDERABLES Final R esult Performing Organization Address City/[facility]/ZIP Co de Phone Number [facility] [address] [place] [address], [place] [phone] * (ABNORMAL) Comprehensive metabolic panel (11/03/2024 4:07 PM EST) Pathologist [facility] Sodium 137 133 - 145 mmol/L LAB CHEMISTRY METHOD 11/03/2024 6:54 PM EST [facility] Potassium 4.2 3.5 - 5.5 mmol/L LAB CHEMISTRY METHOD 11/03/2024 6:54 PM EST [facility] Chloride 101 96 - 110 mmol/L LAB CHEMISTRY METHOD 11/03/2024 6:54 PM EST [facility] CO2 31 21 - 32 mmol/L LAB CHEMISTRY METHOD 11/03/2024 6:54 PM EST [facility] Anion Gap 5 3 - 11 LAB CHEMISTRY METHOD 11/03/2024 6:54 PM EST [facility] Glucose 86 70 - 100 mg/dL LAB CHEMISTRY METHOD 11/03/2024 6:54 PM [facility] BUN 21 5 - 25 mg/dL LAB CHEMISTRY METHOD 11/03/2024 6:54 PM [facility] Creatinine 1.00 0.70 - 1.30 mg/dL LAB CHEMISTRY METHOD 11/03/2024 6:54 PM [facility] eGFR 84 >=60 mL/min/1. 73m2 LAB CHEMISTRY METHOD 11/03/2024 6:54 PM [facility] Comment:Calculation based on the Chronic Kidney Disease Epidemiology Collaboration (CKD-EPI) equation refit without adjustment for race. BUN/Creatinine Ratio 21.0 LAB CHEMISTRY METHOD 11/03/2024 6:54 PM [facility] Calcium 9.8 8.5 - 10.5 mg/dL LAB CHEMISTRY METHOD 11/03/2024 6:54 PM [facility] AST (SGOT) 27 10 - 42 unit/L LAB CHEMISTRY METHOD 11/03/2024 6:54 PM [facility] ALT (SGPT) 45 10 - 60 unit/L LAB CHEMISTRY METHOD 11/03/2024 6:54 PM [facility] Alkaline Phosphatase 55 42 - 121 unit/L LAB CHEMISTRY METHOD 11/03/2024 6:54 PM [facility] Total Protein 6.7 6.0 - 8.0 g/dL LAB CHEMISTRY METHOD 11/03/2024 6:54 PM [facility] Albumin 4.2 3.2 - 5.0 g/dL LAB CHEMISTRY METHOD 11/03/2024 6:54 PM [facility] Total Bilirubin 1.7(H) 0.0 - 1.4 mg/dL LAB CHEMISTRY METHOD 11/03/2024 6:54 PM [facility] Blood Venous blood specimen / Unknown Venipuncture / Unknown 11/03/2024 4:07 PM EST 11/03/2024 4:38 PM EST us Sisi Pinto MD LAB BLOOD ORDERABLES Final R esult [facility] [address] [place] [address], [place] [phone] from Last 3 Months or Most Recently Relevant to Health Maintenance Insurance [facility] Care Teams Edger Runner Relationship Specialty Start Date End Date Rosana Owen, WET MACHINE CUTTER [facility] [id number] [place] [address] PCP - General 05/09/23
== END 2025-08-19 15:42 | disposition home or self-care (01) ==
LOC: HO.BBR 15:41
PROVIDERS: Visit Provider Internal Medicine
DX: D45 Polycythemia vera (principal)
CPT/HCPCS: 85018; 99195